=== PATIENT | male | born 1990 | race Caucasian/White ===

== ENCOUNTER 2019-11-28 22:05 | Emergency (ER) | payer BC, OTHER ==
[~2019-11-28] VITALS: Ht 177.8 cm; Wt 68.0 kg
[2019-11-28] MEDS ORDERED: Tetanus/Diptheria/Pertussis IM ONE (22:15)
[2019-11-28] MEDS ORDERED: BACITRACIN ZIN1 EACH TOPIC (22:15)
[2019-11-28] MEDS ORDERED: Bacitracin Oint UD TOPIC ONE (22:15)
[2019-11-28] MEDS ORDERED: Lidocaine 1% MPF 10mg/ml 5ml INJ ONE (22:15)
[2019-11-28 22:17] VITALS: BP 106/68
--- NOTE | 2019-11-28 22:17 | NUR ---
ED Nurse Note: pt ambulated into ed from home co laceration on right wrist d/t breaking a mug at home while drying dishes. Pt vss no ss of distress noted. pt aao x , ambulatory with steady gait. ERMD at bedside. Wound irrigated with sterile water.
--- NOTE | 2019-11-28 22:18 | NUR ---
ED Nurse Note: ERMD at bedside
--- NOTE | 2019-11-28 22:30 | NUR ---
ED Nurse Note: All medications administered, pt tolerated well. NO ss of distress noted. Wound cleaned and bandaged. Will continue to monitor.
--- NOTE | 2019-11-28 22:31 | Emergency Room Report ---
History of Present Illness General Chief Complaint: Laceration Source: Patient Present Illness HPI Patient is a 29-year-old male denies any significant past medical history who presents to the ER complaining of laceration to his right wrist. Patient is left-hand dominant. He states that he was holding a mug that was cut and accidentally cut his wrist. He states that it was not suicidal ideation or attempt. He does not know when his last tetanus shot was. Allergies: Coded Allergies: No Known Allergies (Unverified , 11/28/19) COVID-19 Screening Contact w/high risk pt: No Recent Travel to affected area: No Experienced COVID-19 symptoms?: No COVID-19 Testing performed REGISTERED DENTAL ASSISTANT RDA: No Patient History Reviewed Nursing Documentation: PMH: Agreed; PSxH: Agreed Review of Systems All Other Systems: negative except mentioned in HPI Physical Exam Vital Signs Date Time Temp Pulse Resp B/P (MAP) Pulse Ox O2 Delivery O2 Flow Rate FiO2 11/28/19 22:12 98.2 68 16 106/68 (81) 97 Room Air Sp02 EP Interpretation: reviewed, normal General Appearance: no apparent distress, alert, GCS 15, non-toxic Head: normocephalic, atraumatic Eyes: bilateral eye normal inspection, bilateral eye PERRL ENT: hearing grossly normal, EOM grossly intact, normal pharynx, no angioedema Neck: normal inspection, full range of motion Respiratory: chest non-tender, lungs clear Cardiovascular #1: regular rate, rhythm Cardiovascular #2: 2+ radial (R), 2+ radial (L) Rectal: deferred Musculoskeletal: normal range of motion Neurologic: senior risk manager III-XII nml as tested, oriented x3 Psychiatric: no suicidal/homicidal ideation Skin: other - Linear laceration approximately 8 cm in length distal 3 cm cut through the dermis 5 cm superficial no tendon involvement through the dorsal surface of right wrist Lymphatic: no adenopathy Procedures Laceration/Wound Repair Laceration/Wound Repair : Consent: Verbal Wound Location: upper extremity - R wrist Wound's Depth, Shape: superficial, linear Wound Length (cm): 8 Wound Explored: clean Irrigated w/ Saline (ccs): 300 Betadine Prep?: No Anesthesia: 1% Lidocaine Volume Anesthetic (ccs): 2 Wound Debrided: None Wound Repaired With: ulices Number of Sutures: 4 Layer Closure?: No Sterile Dressing Applied?: Yes Sling Applied?: No Complications: Other - Patient became lightheaded and momentarily had a syncopal episode during laceration repair. No trauma. He is now awake alert and oriented. Medical Decision Making Diagnostic Impression: Primary Impression: Laceration ER Course After discussing risks and benefits of further diagnostics, treatment plans, as well as indications for and risks of admission, the patient is agreeable to being discharged home. I have explained that their evaluation and treatment in the emergency department today is an important step towards them achieving better health but that their evaluation today is not intended to replace further evaluation and treatment by a physician in their local clinic. I have explained that while the current findings suggest no immediate life threatening emergency they will require further evaluation and treatment by a physician of their choice in their area. They understand that it will be necessary for them to review the final reports of their ED visit with their clinic physician. We have reviewed indications for return to the Emergency Department. I have explained that additional time may need to pass and/or additional testing as an outpatient may be necessary before a definitive diagnosis can be made. They tell me they are willing to follow up as instructed within the timeframe I recommend. They appear to understand what we discussed. Additionally they understand that if they are unable to be seen by an outpatient physician they are welcome, and in fact should, return to the Emergency Department for a repeat evaluation. The patient is stable at time of discharge. Last Vital Signs Date Time Temp Pulse Resp B/P (MAP) Pulse Ox O2 Delivery O2 Flow Rate FiO2 11/28/19 22:12 98.2 68 16 106/68 (81) 97 Room Air Disposition: HOME, SELF-CARE Condition: Stable Scripts Bacitracin Zinc* (BACITRACIN ZINC*) 1 Each Packet 1 APPLIC TOPIC THREE TIMES A DAY for 7 Days, PACKET Prov: Yvrose Martin M.D. 11/28/19 Referrals: [facility] Mily Galindo [facility] Patient Instructions: Laceration Care, Adult, [id number] Additional Instructions: Return to the emergency room in 2 days for wound check. Return to the ER in 8 days for staple removal. The patient was provided with discharge instructions, notified to follow-up with a primary care doctor and or specialist in the next 24-48 hours, and to return to the ED if they have worsening of their symptoms. Please note that this report is being documented using DRAGON technology. This can lead to erroneous entry secondary to incorrect interpretation by the dictating instrument. Yvrose Martin M.D. Nov 28, 2019 22:31
[2019-11-28 23:00] VITALS: BP 106/68
--- NOTE | 2019-11-28 23:00 | NUR ---
ER DISCHARGE NOTE: Patient is cleared to be discharged home per ERMD, pt is aox4, 99% on room air, with stable vital signs. pt was given dc and prescription instructions, pt was able to verbalize understanding, pt id band removed. pt is able to ambulate with steady gait. pt took all belongings.
== END 2019-11-28 23:00 | disposition home or self-care (01) ==
LOC: EMR 22:30
DX: S61.511A Laceration without foreign body of right wrist, initial encounter (principal); Z23 Encounter for immunization; W45.8XXA Other foreign body or object entering through skin, initial encounter; Y92.9 Unspecified place or not applicable
CPT/HCPCS: 90471; 90715; 99283